=== PATIENT | female | born 1995 | race Caucasian/White ===

== ENCOUNTER 2016-10-07 21:55 | Emergency (ER) | payer OTHER ==
[~2016-10-07] VITALS: Ht 172.7 cm; Wt 63.5 kg
[2016-10-07] MEDS ORDERED: IV NS 0.9% 1,000 ML BAG IV ONE (22:30)
[2016-10-07] MEDS ORDERED: IV NS 0.9% 2,000 ML ONE (22:32)
[2016-10-07] MEDS ORDERED: IV SET PRIMARY 1 EA INFUS.SET MC ONE (22:32)
[2016-10-07 22:34] LABS: ABG BASE EXCESS -1.3 mmol/L; ABG HCO3 23.4 mmol/L; ABG PCO2 39.1 mmHg (35.0-45.0); ABG PH 7.395 (7.350-7.450); ABG PO2 33.4 mmHg (75.0-100.0); ABG TOTAL HEMOGLOBIN 11.2 G/dL (12.0-16.0); O2Hb 58.1 % (94.0-97.0)
[2016-10-07 22:41] LABS: BASOPHILS # (AUTO) 0.1 /CMM (0.0-0.2); BASOPHILS % (AUTO) 0.9 % (0.0-2.0); DIFF TOTAL % 100 %; EOSINOPHILS # (AUTO) 0.1 /CMM (0.0-0.7); EOSINOPHILS % (AUTO) 0.7 % (0.0-6.0); HEMATOCRIT 33 % (33-45); HEMOGLOBIN 10.1 g/dL (11.5-14.8); LYMPHOCYTES # (AUTO) 2.4 /CMM (0.8-4.8); LYMPHOCYTES % (AUTO) 32.9 % (20.0-44.0); MEAN CORPUSCULAR HEMOGLOBIN 21 PG (26.0-33.0); MEAN CORPUSCULAR HGB CONC 31 g/dl (31.0-36.0); MEAN CORPUSCULAR VOLUME 68 fL (82-100); MONOCYTES # (AUTO) 0.4 /CMM (0.1-1.30); MONOCYTES % (AUTO) 6.2 % (2.0-12.0); NEUTROPHILS # (AUTO) 4.3 /CMM (1.8-8.9); NEUTROPHILS % (AUTO) 59.3 % (43.0-81.0); PLATELET COUNT (AUTO) 454 /CMM (150-450); WHITE BLOOD COUNT (AUTO) 7.2 K/uL (4.3-11.0)
[2016-10-07 22:54] LABS: CALCIUM, SERUM 8.4 mg/dL (8.5-10.1); CREATININE 0.8 mg/dL (0.6-1.3); POTASSIUM 3.8 mmol/L (3.5-5.1)
[2016-10-07] MEDS ORDERED: INSULIN ASPART NOVOLOG 100 UNIT/ML CARTRIDGE SQ ONE ×2 (23:30)
[2016-10-08 00:32] VITALS: BP 121/67
[2016-10-08 01:12] LABS: ANISOCYTOSIS 1+; BASOPHILS % (MANUAL) 0 % (0.0-2.0); EOSINOPHILS % (MANUAL) 0 % (0-4); HYPOCHROMASIA 1+; LYMPHOCYTES % (MANUAL) 33 % (16-48); MICROCYTOSIS 3+; PLATELET ESTIMATE INCREASED
== END 2016-10-08 00:33 | disposition home or self-care (01) ==
LOC: ER 22:03
DX: E11.65 Type 2 diabetes mellitus with hyperglycemia (principal); E86.0 Dehydration; Z91.14 Patient's other noncompliance with medication regimen
CPT/HCPCS: 36415; 36600; 80048; 82962; 85025; 96360; 96372; 99284; A4606; J1815; J7030; Z7610